=== PATIENT | female | born 1980 | race Caucasian/White ===

== ENCOUNTER 2018-06-14 20:02 | Observation (INO) | payer MEDICAID ==
[2018-06-14] MEDS ORDERED: Lactated Ringers 1,000 ML IV ONE (20:59)
[2018-06-14] MEDS ORDERED: Acetaminophen 325 MG Tab PO PRN (21:29)
[2018-06-14] MEDS ORDERED: Betamethasone Acetate/Betamethasone Sod Phosphate 30 MG/5 ML MDV IM ONE (21:29)
[2018-06-14] MEDS ORDERED: Lactated Ringers 1,000 ML IV SCH (21:30)
[2018-06-14] MEDS ORDERED: hydrOXYzine HCl 25 MG Tab PO PRN (21:32)
[2018-06-14] MEDS ORDERED: Calcium Carbonate 500 MG Tab.Chew PO PRN (22:22)
--- NOTE | 2018-06-15 02:43 | HP ---
HISTORY OF PRESENT ILLNESS: Syl Grace is a 38-year-old female, G7, P1-2-3-3 female at 31 weeks and 3 days' gestation via 10-week 4 day ultrasound. The patient started having some bilateral lower abdominal pain yesterday evening. Today around 5:00 p.m. she started having contractions and pain in her back and lower abdomen. She timed these as 3-7 minutes apart. She has more pain on her left than the right. She describes contractions as uncomfortable but not overly painful. Denies any leakage of fluid or bleeding. The patient has a history of blood clot in , last one was in December and in April, she was cleared of any clots. She had one left lower leg clot. She is on Lovenox for this. The patient reports activity. The patient denies chest pain, shortness of breath, headache, vision changes, calf pain, nausea, vomiting, urinary urgency/frequency, dysuria, diarrhea, constipation. Positive for some swelling in her legs bilaterally. PRIOR HISTORY: 1. First : Bernard, date of 04/06/2000. Male born at 34 weeks and 0 days via induction due to severe preeclampsia. Weighed 2608 g. 2. Second : Antoinette, date of 05/04/2003, Female born at 38 weeks and 0 days, weighed 3969 g. 3. Third , spontaneous before 10 weeks, 2006. 4. Fourth : Spontaneous before 10 weeks, 2007. 5. Fifth : Silver, date of 05/16/2008, Female born at 36 weeks and 3 days via primary low-transverse for placental abruption. Weight 3090 g. 6. Sixth : , [birth year]/04/2014 at 8 weeks gestation. CURRENT MEDICATIONS: 1. vitamin daily. 2. Lovenox injection 80 mg daily. 3. Baby aspirin daily. ALLERGIES: Doxycycline. PAST MEDICAL HISTORY: 1. Mood disorder. 2. Nicotine dependence, resolved. 3. Depression. 4. Abnormal Pap smear at age 17, positive HPV. 5. Eczema. PAST SURGICAL HISTORY: Low transverse . FAMILY HISTORY: Paternal grandfather had prostate cancer. Grandmother with lung cancer. Negative family history of anesthesia problems, bleeding problems, defects. SOCIAL HISTORY: The patient is living in [place] with her fiance with their 6 kids. Three of the children are the patient's from a previous relationship. Three of the kids are her fiance's from his previous relationship. The patient is working at [employer]. They have 1 dog in the home. No smoking. REVIEW OF SYSTEMS: HEENT: No headaches, dizziness, change in vision or hearing. Lungs: No trouble breathing, shortness of breath. Cardiovascular: No chest pain, lower extremity pain. Mild lower extremity edema. Gastrointestinal: No nausea, vomiting. Abdominal pain per HPI. Genitourinary: No dysuria, increased frequency, blood in urine, urgency. PHYSICAL EXAMINATION: Vital Signs: Blood pressure 134/71, pulse 91, temperature 98.7. heart tracings 150 with moderate variability. General: Alert, cooperative, in no acute distress. HEENT: Grossly normal. Lungs: Clear to auscultation bilaterally. Cardiovascular: Regular rate and rhythm. No murmurs noted. Abdomen: Gravid. Bowel sounds normoactive. Nontender. Extremities: Mild edema, no tenderness. Deep tendon reflexes normal. Cervical check done by Dr. Hawk, cervix is fingertip and ballotable. LABORATORY RESULTS: Small amount of blood, trace leukocyte esterase, 10-20 red blood cells, 5-10 white blood cells, moderate epithelial cells. ASSESSMENT: Syl Grace is a 38-year-old G7, P1-2-3-3 female at 31 weeks and 3 days' gestation via 10-week ultrasound with contractions and lower back and lower abdominal pain. 1. High-risk . 2. Elderly multigravida. 3. History of section. 4. History of preeclampsia in a prior . 5. Deep venous thrombosis in . 6. Hx of bacterial vaginosis in this . PLAN: Admission for observation. We will monitor heart rate tracings and contractions overnight. Giving betamethasone for possible early labor. Hydroxyzine 50 mg at bedtime p.r.n. Urinalysis and wet prep were obtained. Patient will receive 1 L LR as a bolus and a second liter at 125 ml/hr. The patient was seen today by myself and Dr. Hawk. Assessment and plan are under advisement of Dr. Hawk. Tab Piña, MS-III [facility] /[id number] Patient was personally seen and examined with the medical student. I reviewed the noted scribed on my behalf and necessary changes have been made to reflect my opinion on the history, exam, assessment, and plan. Linda Hawk MD [facility]
--- NOTE | 2018-06-16 01:08 | DISCH ---
ADMITTING DIAGNOSES: 1. High-risk . 2. Elderly multigravida. 3. History of section x1. 4. History of preeclampsia in a prior . 5. Deep venous thrombosis in . 6. History of bacterial vaginosis in . 7. 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 8. Contractions. DISCHARGE DIAGNOSES: 1. High-risk . 2. Elderly multigravida. 3. History of section x1. 4. History of preeclampsia in a prior . 5. Deep venous thrombosis in . 6. History of bacterial vaginosis in . 7. History of miscarriages x3. BRIEF HISTORY: Syl is a 38-year-old female, G7, P1-2-3-3, at 31 weeks and 3 days' gestation via 10-week 4-day ultrasound. The patient presented with some bilateral lower abdominal pain that started 2 evenings ago. Yesterday, around 5 , she started having contractions and pain in her back and lower abdomen. She times the contractions 3 to 7 minutes apart and decided to come to the hospital. She has more pain on her left than the right. She had no leakage of fluid or bleeding. HOSPITAL COURSE: Good. The patient was kept for observation overnight to monitor heart monitoring and contractions. The patient was given betamethasone for possible premature labor. Overnight, the patient said she was still feeling the contractions about the same intensity as when she presented, although they did not trace on TOCO this morning. She was able to sleep through the contractions. She does say that she feels more contractions on the left still. Cervix on admission was fingertip and ballotable and that is unchanged today. The patient had no leakage of fluid overnight. No blood. The patient is still feeling the baby moving. No headaches, visual changes, nausea, or vomiting. No shortness of breath, chest pain, leg or calf pain. DISCHARGE CONDITION: Good. PHYSICAL EXAMINATION: Vital Signs: Temperature 98.1, pulse rate 97, blood pressure 122/63, and respiratory rate 16. heart tracings in the 140s to 150s with moderate variability. No contractions noted this morning on [place]. Heart: Regular rate and rhythm without murmur. Lungs: Clear bilaterally. Abdomen: Gravid, nontender. Extremities: No edema, erythema, or tenderness noted. Cervix: Fingertip, ballotable. LABORATORY DATA: On admission, urine had trace leukocyte esterase, 10 to 20 red blood cells, 5 to 10 white blood cells, moderate epithelial cells. Wet prep was negative. DISCHARGE MEDICATIONS: None. The patient will return tonight for second dose of betamethasone. The patient can continue her: 1. Lovenox. 2. Aspirin. 3. Multivitamin. DISPOSITION: Home with family. FOLLOWUP: The patient has a scheduled appointment with Dr. Solo this Thursday. She will return tonight for the 2nd dose of betamethasone. The patient was seen by myself and Dr. Hawk. The assessment and plan are under advisement of Dr. Hawk. Tab Wang, MS-III [facility] /[id number] Patient was personally seen and examined with the medical student. I reviewed the noted scribed on my behalf and necessary changes have been made to reflect my opinion on the history, exam, assessment, and plan. Linda Hawk MD [facility]
== END 2018-06-15 09:00 | disposition home or self-care (01) ==
LOC: DL.OBCHECK 20:02 → DL.OB 21:27 → UNDOADMOB 21:27 → DL.OB 21:29
PROVIDERS: ADMIT Family Medicine; ATTEND Family Medicine
DX: O47.03 False labor before 37 completed weeks of gestation, third trimester (principal); O09.523 Supervision of elderly multigravida, third trimester; O22.33 Deep phlebothrombosis in pregnancy, third trimester; I82.409 Acute embolism and thrombosis of unspecified deep veins of unspecified lower extremity; Z3A.33 33 weeks gestation of pregnancy; Z87.59 Personal history of other complications of pregnancy, childbirth and the puerperium; Z79.82 Long term (current) use of aspirin; Z79.899 Other long term (current) drug therapy
CPT/HCPCS: 81001; 87086; 87210; 96360; 96361; 96372; A9270; G0378; J0702; J7120

== ENCOUNTER 2021-03-14 18:04 | Emergency (ER) | payer MEDICAID, OTHER ==
[2021-03-14] MEDS ORDERED: Acetaminophen/HYDROcodone 325-10 MG Tab PO ONE (18:05)
[2021-03-14] MEDS: Sodium Chloride 0.9% 1,000 ML IV ONE (18:32)
[2021-03-14] MEDS: Ondansetron 4 MG/2 ML SDV IVPUSH ONE (18:34)
[2021-03-14] MEDS: HYDROmorphone 1 MG/ML Syringe IVPUSH ONE (18:36)
--- NOTE | 2021-03-14 18:43 | EDM.PDOC ---
<Anna Arreola - Last Filed: 03/14/21 18:46> ED HPI GENERAL MEDICAL PROBLEM - General Chief Complaint: Flank Pain Stated Complaint: LEFT LOWER BACK SIDE PAIN Time Seen by Provider: 03/14/21 18:20 Source of Information: Reports: Patient, RN, RN Notes Reviewed History Limitations: Reports: No Limitations - History of Present Illness INITIAL COMMENTS - FREE TEXT/NARRATIVE: Syl is a 41 y/o female who presents to the ED via personal vehicle with complaints of left flank pain. The patient reports her symptoms began abruptly approximately one hour prior to her presentation to this facility. She characterizes the pain as a sharp stabbing originating in her left flank and radiating to her left side; she notes the pain waxes and wanes in severity. Additionally, she notes diaphoresis and nausea when the pain is at it's greatest. She denies recent illness, fever, shaking chills, dyspepsia, vomiting, diarrhea, dysuria, hematuria, inability to void, or incontinence. She has taken no medications for her symptoms. The patient denies tobacco, alcohol, or recreational drug use. Left Flank Pain Score (Numeric/FACES): 9 - Related Data Allergies Allergy/AdvReac Type Severity Reaction Status Date / Time doxycycline Allergy Rash Verified 03/14/21 18:14 Home Meds: Home Meds . [No Known Home Meds] 03/14/21 [History] Past Medical History HEENT History: Reports: Impaired Vision Cardiovascular History: Reports: Blood Clots/VTE/DVT GUARD MANAGER History: Reports: , Spontaneous , Other (See Below) Other GUARD MANAGER History: hx abnormal pap with cryo, +HPV Musculoskeletal History: Reports: Other (See Below) Other Musculoskeletal History: hx forearm fx Psychiatric History: Reports: Depression, Mood Swings Dermatologic History: Reports: Eczema - Infectious Disease History Infectious Disease History: Reports: Chicken Pox, Human Papilloma Virus (HPV) - Past Surgical History Female Surgical History: Reports: Section, Cervical Cryotherapy, Tubal Ligation Social & Family History - Family History Family Medical History: No Pertinent Family History - Tobacco Use Tobacco Use Status *Q: Never Tobacco User Second Hand Smoke Exposure: No - Caffeine Use Caffeine Use: Reports: None - Recreational Drug Use Recreational Drug Use: No ED ROS GENERAL - Review of Systems Review Of Systems: Comprehensive ROS is negative, except as noted in HPI. ED EXAM, RENAL/ - Physical Exam Exam: See Below Exam Limited By: No Limitations General Appearance: Alert, Mild Distress (Left flank pain) Eye Exam: Bilateral Eye: EOMI, Normal Inspection, PERRL (3mm) Ears: Normal External Exam, Hearing Grossly Normal Nose: Normal Inspection Throat/Mouth: Normal Inspection, Normal Oropharynx, Normal Voice, No Airway Compromise Head: Atraumatic, Normocephalic Neck: Normal Inspection, Supple, Non-Tender, Full Range of Motion. No: Lymphadenopathy (L), Lymphadenopathy (R) Respiratory/Chest: No Respiratory Distress, Lungs Clear, Normal Breath Sounds, No Accessory Muscle Use, Chest Non-Tender Cardiovascular: Normal Peripheral Pulses, Regular Rate, Rhythm, No Gallop, No Murmur, No Rub, Tachycardia GI/Abdominal: Soft, No Distention, No Abnormal Bruit, No Mass, Pelvis Stable, Tender (To LLQ), Abnormal Bowel Sounds (Hypoactive bowel sounds) (Female) Exam: Deferred Rectal (Female) Exam: Deferred Back Exam: CVA Tenderness (L). No: CVA Tenderness (R) Extremities: Normal Inspection, Normal Range of Motion, Normal Capillary Refill Neurological: Alert, Oriented, CN II-XII Intact, Normal Cognition, Normal Gait, No Motor/Sensory Deficits Psychiatric: Normal Affect, Normal Mood Skin Exam: Warm, Dry, Intact, Normal Color, No Rash. No: Cyanosis, Jaundice, Mottled, Pallor Departure - Departure Disposition: Home, Self-Care 01 Clinical Impression: Kidney stone on left side - Discharge Information Instructions: Kidney Stones, [id number]-[id number] Forms: ED Department Discharge Care Plan Goals: The patient was advised of the examination, lab and CT results during the visit. The patient was given IV fluids, IV Dilaudid, IV Toradol and oral FloMax during the visit. The patient was discharged with [place] (10/325) #2 to take 1 by mouth every 6 hours as needed for pain. The patient was also discharged with a script for 1) Toradol (10 mg) #20 to take 1 by mouth every 6 hours, 2) FloMax (0.4 mg) #7 to take 1 by mouth daily and 3) [place] (10/325) #4 to take 1 by mouth every 6 hours as needed for pain. The patient was encouraged to follow-up with her primary care facility within the next week for continued evaluation and further management. If the patient has any additional symptoms or concerns, the patient should either return to the emergency department or visit her primary care facility. <Vasile Ibrahim - Last Filed: 03/14/21 20:48> Course - Vital Signs Last Recorded V/S: Last Vital Signs Temp 98.1 F 03/14/21 18:09 Pulse 106 H 03/14/21 18:09 Resp 20 03/14/21 18:09 BP 137/84 03/14/21 18:09 Pulse Ox 98 03/14/21 18:09 - Orders/Labs/Meds Orders: Active Orders 24 hr Category Date Time Status UA RFX JAIME AND CULT IF INDIC [URIN] Stat Lab 03/14/21 18:22 Ordered Labs: Laboratory Tests 03/14/21 03/14/21 Range/Units 18:25 18:25 WBC 9.2 (5.0-10.0) 10^3/uL RBC 4.77 (4.2-5.4) 10^6/uL Hgb 15.0 (12.0-16.0) g/dL Hct 44.3 (37.0-47.0) % MCV 92.9 (80-100) fL MCH 31.4 (27.0-34.0) pg MCHC 33.9 (33.0-35.0) g/dL Plt Count 229 (150-450) 10^3/uL Neut % (Auto) 60.4 (42.2-75.2) % Lymph % (Auto) 28.7 (20.5-50.1) % [place] % (Auto) 9.4 H (2-8) % Eos % (Auto) 1.2 (1.0-3.0) % Baso % (Auto) 0.3 (0.0-1.0) % Sodium 140 (136-145) mmol/L Potassium 3.4 L (3.5-5.1) mmol/L Chloride 104 (98-107) mmol/L Carbon Dioxide 24 (21-32) mmol/L Anion Gap 15.4 H (7-13) mEq/L BUN 16 (7-18) mg/dL Creatinine 0.88 (0.55-1.02) mg/dL Est Cr Clr Drug Dosing 73.38 mL/min Estimated GFR (MDRD) > 60 BUN/Creatinine Ratio 18.2 (No establ ref range) Glucose 104 H (70-99) mg/dL Calcium 9.3 (8.5-10.1) mg/dL Total Bilirubin 0.9 (0.2-1.0) mg/dL AST 21 (15-37) U/L ALT 44 (14-59) U/L Alkaline Phosphatase 79 (46-116) U/L Total Protein 8.0 (6.4-8.2) g/dL Albumin 4.0 (3.4-5.0) g/dL Globulin 4.0 Albumin/Globulin Ratio 1.0 Meds: Medications Discontinued Medications Generic Name Dose Route Start Last Admin Trade Name Freq PRN Reason Stop Dose Admin Hydromorphone HCl 1 mg 03/14/21 18:30 03/14/21 18:36 Hydromorphone 1 Mg/Ml Syringe IVPUSH 03/14/21 18:31 1 mg ONETIME ONE Administration Sodium Chloride 1,000 mls @ 999 mls/hr 03/14/21 18:24 03/14/21 18:32 Normal Saline IV 03/14/21 19:24 999 mls/hr .BOLUS ONE Administration Ketorolac Tromethamine 30 mg 03/14/21 20:20 03/14/21 20:30 Ketorolac 30 Mg/Ml Sdv IVPUSH 03/14/21 20:21 30 mg ONETIME ONE Administration Ondansetron HCl 4 mg 03/14/21 18:30 03/14/21 18:34 Ondansetron 4 Mg/2 Ml Sdv IVPUSH 03/14/21 18:31 4 mg ONETIME ONE Administration Tamsulosin HCl 0.4 mg 03/14/21 20:20 03/14/21 20:31 Tamsulosin 0.4 Mg Cap.Er PO 03/14/21 20:21 0.4 mg ONETIME ONE Administration - Radiology Interpretation Free Text/Narrative:: [facility] Final Radiology Report Call: [phone] assistance Online chat: [email or web address] Name: SYL TROY Age: 41Years F Date: 03/14/2021 SSN: -- : 1980 Study: CT ABDOMEN PELVIS WO CONT Requesting Physician: Anna Arreola Images: [phone] Addl Studies: Provided Clinical History: r/o renal stone; Left flank pain Contrast: Without Contrast Medium: Contrast Amount: Contrast Method: Page 1 of 2 PROCEDURE INFORMATION: Exam: CT Abdomen And Pelvis Without Contrast Exam date and time: 03/14/2021 6:56 PM Age: 41 years old Clinical indication: Other: Left sided pain; Additional info: R/O renal stone; Left flank pain TECHNIQUE: Imaging protocol: Computed tomography of the abdomen and pelvis without contrast. Radiation optimization: All CT scans at this facility use at least one of these dose optimization techniques: automated exposure control; mA and/or kV adjustment per patient size (includes targeted exams where dose is matched to clinical indication); or iterative reconstruction. COMPARISON: No relevant prior studies available. FINDINGS: Liver: Normal. No mass. Gallbladder and bile ducts: Normal. No calcified stones. No ductal dilation. Pancreas: Normal. No ductal dilation. Spleen: Normal. No splenomegaly. Adrenal glands: Normal. No mass. Kidneys and ureters: A small hypodensity in the right kidney cannot be further characterized on this study. [id number] left hydronephrosis. This is due to a solitary 5 mm left UPJ stone. Stomach and bowel: Unremarkable. No obstruction. No mucosal thickening. Appendix: No evidence of appendicitis. Intraperitoneal space: Trace free fluid is probably physiologic. Vasculature: Unremarkable. No abdominal aortic aneurysm. Lymph nodes: Unremarkable. No enlarged lymph nodes. Urinary bladder: Bladder is under distended. Reproductive: Uterus appears mildly bulky. Bones/joints: Unremarkable. No acute fracture. Soft tissues: Mildly asymmetric breast tissue. IMPRESSION: 1. Qisa-se-avanocwj left hydronephrosis due to a solitary 5 mm left UPJ stone. 2. Slightly asymmetric right asymmetric breast tissue. Recommend correlation with mammography. Thank you for allowing us to participate in the care of your patient. Dictated and Authenticated by: Kashif Bentley MD 03/14/2021 8:03 PM Central Time ([place] & [place]) - Re-Assessments/Exams Free Text/Narrative Re-Assessment/Exam: 03/14/21 20:26 Patient care was taken over due to shift change. Assessment, lab results, CT results and treatments were reviewed. The patient was advised of the CT results and given an IV dose of Toradol and an oral dose of FloMax. Departure - Departure Time of Disposition: 20:48 Condition: Fair - Discharge Information *PRESCRIPTION DRUG MONITORING PROGRAM REVIEWED*: Not Applicable *COPY OF PRESCRIPTION DRUG MONITORING REPORT IN PATIENT STEPHANI: Not Applicable Sepsis Event Note (ED) - Focused Exam Vital Signs: Vital Signs Temp Pulse Resp BP Pulse Ox 03/14/21 18:09 98.1 F 106 H 20 137/84 98
[2021-03-14 18:48] LABS: ANION GAP 15.4 mEq/L (7-13); CHLORIDE,CL 104 mmol/L (98-107); SODIUM,NA 140 mmol/L (136-145)
--- NOTE | 2021-03-14 20:04 | CT ---
PROCEDURE INFORMATION: Exam: CT Abdomen And Pelvis Without Contrast Exam date and time: 03/14/2021 6:56 PM Age: 41 years old Clinical indication: Other: Left sided pain; Additional info: R/O renal stone; Left flank pain TECHNIQUE: Imaging protocol: Computed tomography of the abdomen and pelvis without contrast. Radiation optimization: All CT scans at this facility use at least one of these dose optimization techniques: automated exposure control; mA and/or kV adjustment per patient size (includes targeted exams where dose is matched to clinical indication); or iterative reconstruction. COMPARISON: No relevant prior studies available. FINDINGS: Liver: Normal. No mass. Gallbladder and bile ducts: Normal. No calcified stones. No ductal dilation. Pancreas: Normal. No ductal dilation. Spleen: Normal. No splenomegaly. Adrenal glands: Normal. No mass. Kidneys and ureters: A small hypodensity in the right kidney cannot be further characterized on this study. Udet-fp-[id number] left hydronephrosis. This is due to a solitary 5 mm left UPJ stone. Stomach and bowel: Unremarkable. No obstruction. No mucosal thickening. Appendix: No evidence of appendicitis. Intraperitoneal space: Trace free fluid is probably physiologic. Vasculature: Unremarkable. No abdominal aortic aneurysm. Lymph nodes: Unremarkable. No enlarged lymph nodes. Urinary bladder: Bladder is under distended. Reproductive: Uterus appears mildly bulky. Bones/joints: Unremarkable. No acute fracture. Soft tissues: Mildly asymmetric breast tissue. IMPRESSION: 1. Vams-ej-dklxkieo left hydronephrosis due to a solitary 5 mm left UPJ stone. 2. Slightly asymmetric right asymmetric breast tissue. Recommend correlation with mammography.
[2021-03-14] MEDS: Ketorolac 30 MG/ML SDV IVPUSH ONE (20:30)
[2021-03-14] MEDS: Tamsulosin 0.4 MG Cap.ER PO ONE (20:31)
[2021-03-14] MEDS ORDERED: Acetaminophen/HYDROcodone 325-10 MG Tab ONE (20:56)
== END 2021-03-14 21:05 | disposition home or self-care (01) ==
LOC: DL.ED 18:04
DX: N13.2 Hydronephrosis with renal and ureteral calculous obstruction (principal); Z88.1 Allergy status to other antibiotic agents
CPT/HCPCS: 36415; 74176; 80053; 85025; 96374; 96375; 99284-25; A9270-GY; J1170; J1885; J2405; J7030

== ENCOUNTER 2021-11-03 20:15 | Emergency (ER) | payer OTHER ==
[2021-11-03] MEDS ORDERED: Sodium Chloride 0.9% 10 ML Syringe FLUSH PRN (20:24)
[2021-11-03 21:24] LABS: ANION GAP 13.4 mEq/L (7-13); CHLORIDE,CL 102 mmol/L (98-107); SODIUM,NA 139 mmol/L (136-145)
[2021-11-03 21:27] LABS: ESTIMATED GFR 84 mL/min (>=60)
== END 2021-11-03 21:55 | disposition home or self-care (01) ==
LOC: DL.ED 20:15
DX: R07.9 Chest pain, unspecified (principal); Z88.1 Allergy status to other antibiotic agents; Z20.822 Contact with and (suspected) exposure to COVID-19
CPT/HCPCS: 36415; 80053; 81001; 82607; 83605; 83735; 83880; 84443; 84484; 84703; 85025; 85379; 85610; 86140; 93005; 93010; 99284; 99285; U0002

== ENCOUNTER 2022-09-07 11:57 | Emergency (ER) | payer OTHER ==
[2022-09-07] MEDS ORDERED: Bacitracin Oint 1 GM U/D Packet TOP ONE (12:10)
[2022-09-07] MEDS ORDERED: Lidocaine 1% 5 ML VIAL INJECT ONE (12:10)
== END 2022-09-07 12:40 | disposition home or self-care (01) ==
LOC: DL.ED 11:57
DX: S61.412A Laceration without foreign body of left hand, initial encounter (principal); Z88.1 Allergy status to other antibiotic agents; W45.8XXA Other foreign body or object entering through skin, initial encounter
CPT/HCPCS: 12001; 99282; A9270-GY; J3490

== ENCOUNTER 2022-11-14 19:05 | Emergency (ER) | payer OTHER ==
[2022-11-14] MEDS ORDERED: Sodium Chloride 0.9% 10 ML Syringe FLUSH PRN (19:13)
[2022-11-14 19:27] LABS: BASOPHILS PERCENT AUTO 0.3 % (0.0-1.0); EOSINOPHILS PERCENT AUTO 1.7 % (1.0-3.0); HEMATOCRIT 43.1 % (37.0-47.0); HEMOGLOBIN 14.6 g/dL (12.0-16.0); LYMPHOCYTES PERCENT AUTO 34.5 % (20.5-50.1); MEAN CORPUSCULAR HEMOGLOBIN 32.5 pg (27.0-34.0); MEAN CORPUSCULAR HGB CONC 33.9 g/dL (33.0-35.0); MONOCYTES PERCENT AUTO 8.3 % (2-8); NEUTROPHILS PERCENT AUTO 55.2 % (42.2-75.2); PLATELET COUNT,PLT 201 10^3/uL (150-450); RED BLOOD CELL COUNT 4.49 10^6/uL (4.2-5.4); WHITE BLOOD CELL COUNT,WBC 7.8 10^3/uL (5.0-10.0)
[2022-11-14 19:35] LABS: APPEARANCE,URINE CLEAR (CLEAR); BILIRUBIN,URINE NEGATIVE (NEGATIVE); COLOR,URINE YELLOW (YELLOW); GLUCOSE,URINE NEGATIVE (NEGATIVE); KETONES,URINE NEGATIVE (NEGATIVE); LEUKOCYTE ESTERASE,URINE NEGATIVE (NEGATIVE); NITRITE,URINE NEGATIVE (NEGATIVE); OCCULT BLOOD,URINE SMALL (NEGATIVE); PROTEIN,URINE NEGATIVE (NEGATIVE); UROBILINOGEN,URINE 0.2 mg/dL (0.2-1.0)
[2022-11-14 19:46] LABS: A/G RATIO 1.1; ALBUMIN 4.2 g/dL (3.4-5.0); ANION GAP 15.6 mEq/L (7-13); BILIRUBIN TOTAL 0.9 mg/dL (0.2-1.0); CALCIUM 9.4 mg/dL (8.5-10.1); CREATININE 0.69 mg/dL (0.55-1.02); EST CRCL DRUG DOSING (CG) 92.65 mL/min; POTASSIUM,K 3.6 mmol/L (3.5-5.1)
[2022-11-14 19:47] LABS: BACTERIA,URINE RARE /HPF (0-FEW/HPF); EPITHELIAL CELLS,URINE FEW /HPF (NOT SEEN); RBC,URINE 0-5 /HPF (0-5); WBC,URINE 0-5 /HPF (0-5/HPF)
[2022-11-14 19:48] LABS: C-REACTIVE PROTEIN 0.2 mg/dL (0.0-0.9)
[2022-11-14 19:49] LABS: LACTIC ACID 0.9 mmol/L (0.4-2.0)
== END 2022-11-14 20:25 | disposition home or self-care (01) ==
LOC: DL.ED 19:05
DX: I83.812 Varicose veins of left lower extremity with pain (principal); B34.9 Viral infection, unspecified; Z88.1 Allergy status to other antibiotic agents; Z79.899 Other long term (current) drug therapy
CPT/HCPCS: 36415; 80053; 81001; 81025; 83605; 83735; 85025; 85379; 86140; 93005; 93010; 99284; 99285